=== PATIENT | female | born 1975 | race Two or more races ===

== ENCOUNTER → 2016-07-11 | Outpatient (CLI) | payer OTHER ==
--- NOTE | ~2016-07-11 | MY11 ---
[facility] A Service of [facility] RADIOLOGY TEXT RESULTS PATIENT: PAULO OSHEA LOCATION: [facility] : 75 UNIT #: [id number] AGE: [address]: RAMOS JACQUES APRN SEX: F ORDER DR: [id number] [facility] [address] [place], [place] [address] [id number] O MR#: [id number] Acc #: [id number] NAME: PAULO OSHEA : 1975 SEX: F STUDY DATE/TIME: 07/11/2016 9:53 UNIT: [facility] ROOM: STUDY DESCRIPTION: MY Mammogram Screening Dig Frank Attending Physician: Andrae Jacques M.D. Referring Physician: Andrae Jacques M.D. Ordering Physician: Andrae Jacques M.D. Primary Care Physician: Raudel Gunter M.D. MEDICAL IMAGING REPORT This report is preliminary unless electronic signature is present EXAM Digital screening mammogram 07/11/2016. [facility] HISTORY 40-year-old woman baseline mammogram. No risk elevation. FINDINGS Digital imaging of each breast was completed utilizing a two-view examination of each breast in craniocaudal and mediolateral-oblique projections. Review and interpretation of digital mammograms include a second review in conjunction with FDA-approved CAD device. There is a normal parenchymal presentation bilaterally consistent with the patient's age. There are no breast masses imaged and no parenchymal asymmetry is visualized. There are no suspicious microcalcifications and I see no focal architectural disturbance. IMPRESSION Negative screening digital mammogram. One-year followup recommended. Patients over the age of 40 are entered into a reminder system with target due date for the next mammogram. A result letter will also be sent to the patient. BIRADS: 1 Negative Dictated by... Greg Chávez M.D. [facility] A Service [facility] RADIOLOGY TEXT RESULTS PATIENT: PAULO OSHEA LOCATION: [facility] : 75 UNIT #: [id number] AGE: [address]: RAMOS JACQUES APRN SEX: F ORDER DR: THIS IS AN ELECTRONICALLY VERIFIED REPORT Greg Chávez M.D. at 07/12/2016 8:10 AM Gibson TD: 07/11/2016 13:03 JOB #: [id number] MEDICAL IMAGING REPORT Page 1 of 1 COPY
--- NOTE | ~2016-07-11 | US98 ---
[facility] A Service of [facility] RADIOLOGY TEXT RESULTS PATIENT: PAULO OSHEA LOCATION: [facility] : 75 UNIT #: [id number] AGE: [address]: SHANI JACQUES APRN SEX: F ORDER DR: [id number] [facility] [address] [place], [place] [address] [id number] O MR#: [id number] Acc #: [id number] NAME: PAULO OSHEA : 1975 SEX: F STUDY DATE/TIME: 07/11/2016 10:21 UNIT: [facility] ROOM: STUDY DESCRIPTION: US Pelvic Non-OB Complete Attending Physician: Shani Jacques Referring Physician: Shani Jacques Ordering Physician: Andrae Jacques M.D. Primary Care Physician: Raudel Gunter M.D. MEDICAL IMAGING REPORT This report is preliminary unless electronic signature is present EXAM Transabdominal and transvaginal pelvic ultrasound, 07/11/2016 HISTORY Painful heavy menses for 3 months. Left lower quadrant pelvic pain. FINDINGS Transabdominal and transvaginal pelvic ultrasound was performed. Endovaginal ultrasound was performed for attempted better visualization of the adnexal structures. The bladder is normal in appearance. Uterus measures 9.9 cm craniocaudal x 3.6 cm AP x 4.7 cm transverse. Endometrial stripe measures 5 mm. Nabothian cysts are seen in the cervix. Left ovary measured 2.8 cm x 1.7 cm x 2.5 cm while the right ovary measured 2.6 cm x 1.9 cm x 1.9 cm. Small follicles are seen on both ovaries. There is no adnexal mass and there is no free fluid in the pelvis. IMPRESSION Negative transabdominal and transvaginal pelvic ultrasound. Dictated by... Matias Oliva M.D. THIS IS AN ELECTRONICALLY VERIFIED REPORT Matias Oliva M.D. at 07/12/2016 8:01 AM OLIVER/kirill TD: 07/11/2016 22:54 JOB #: [id number] MEDICAL IMAGING REPORT Page 1 of 1 COPY
== END | disposition home or self-care (01) ==
LOC: CWCC 09:28
DX: Z12.31 Encounter for screening mammogram for malignant neoplasm of breast (principal); R10.2 Pelvic and perineal pain; N92.0 Excessive and frequent menstruation with regular cycle
CPT/HCPCS: 76830; 76856; G0202